=== PATIENT | female | born 1975 | race Caucasian/White ===

== ENCOUNTER 2020-08-17 14:21 | Emergency (ER) | payer OTHER, SELFPAY ==
--- NOTE | ~2020-08-17 | CT_ITS ---
EXAMINATION: CT abdomen pelvis w con DATE: 08/17/2020 15:19 INDICATION: Right lower quadrant abdominal pain TECHNIQUE: Computed tomography (CT) of the abdomen and pelvis was performed with 100 mL Omnipaque-350 intravenous contrast. Automated exposure control and iterative reconstruction technique were employe d. The dose-length product was 723.07 mGy-cm. COMPARISON: None FINDINGS: Lung bases are clear. Heart size is normal. No pericardial or pleural effusion. 7 mm low-attenuation likely hepatic cyst in the right hepatic lobe. Gallbladder, spleen, pancreas, bilateral adrenal gland s and kidneys are normal. Normal appendix. No bowel obstruction. There is diffuse mild wall thickening of the colon due at leas t in part to fatty infiltration which could be related to either body habitus were sequela of chronic inflammation. In place however the fatty infiltration appears somewhat edematous and there appears t o be mild hyperemia to vasa recta along the transverse colon and could not exclude superimposed acute colitis. There is also some fatty infiltration in the terminal ileum which is less typical and can b e seen with chronic inflammation such as Crohn's disease. Bladder and uterus are normal. Approximate 1.5 similar bilateral ovarian cysts/follicles. Trace amoun t of likely physiologic free fluid in the pelvis. No abscess or free intraperitoneal gas. No patholog ically enlarged abdominal or pelvic lymphadenopathy. Minimal scattered degenerative skeletal changes. IMPRESSION: 1. Colonic wall thickening with suggestion of some mild inflammation raising concern for colitis. Fat ty infiltration of the colonic wall and terminal ileum which could be related to recurrent inflammati on, the latter raising some suspicion for possible Crohn's disease. Reviewed, dictated and finalized at [facility]. [employer] IMPRESSION: 1. Colonic wall thickening with suggestion of some mild inflammation raising co ncern for colitis. Fatty infiltration of the colonic wall and terminal ileum wh ich could be related to recurrent inflammation, the latter raising some suspici on for possible Crohn's disease.
[2020-08-17 14:24] VITALS: BP 137/81; PULSE 79; RESP 18; TEMP 35.5; O2SAT 100
[2020-08-17 14:53] LABS: Basophils Percent Auto 0.8 % (0.2-1.2); Eosinophils Absolute Auto 0.2 K/mm3 (0-0.3); Eosinophils Percent Auto 3.1 % (0-4.4); Hematocrit 39.1 % (37.0-47.0); Hemoglobin 13.5 g/dL (12.0-15.0); Immature Granulocyte Absolute 0.01 K/mm3 (0.00-0.031); Immature Granulocyte Percent A 0.2 % (0-0.5); Lymphocytes Absolute Auto 1.68 K/mm3 (0.9-3.2); Lymphocytes Percent Auto 32.1 % (18.3-44.2); Mean Corpuscular HGB Conc 34.5 g/dl (32-36); Mean Corpuscular Hemoglobin 31.8 pg (26-34); Mean Corpuscular Volume 92.2 fl (80-100); Mean Platelet Volume 10.6 fl (7.4-10.4); Monocytes Absolute Auto 0.4 K/mm3 (0.1-0.6); Monocytes Percent Auto 6.7 % (2.6-8.5); Neutrophils Percent Auto 57.1 % (45.5-73.1); Platelet Count Result 286 k/mm3 (150-375); Red Blood Count 4.24 M/mm3 (4.2-5.4); Red Cell Distribution Width 12.8 % (11.5-14.5); White Blood Count 5.2 K/mm3 (4.5-10.0)
[2020-08-17] MEDS: SODIUM CHLORIDE 0.9% IV 1,000 ML 999 ML IV CONT (14:58)
[2020-08-17 15:01] LABS: Alanine Aminotransferase 10 U/L (4-35); Albumin Level 4.3 g/dL (3.5-5.1); Alkaline Phosphatase 63 U/L (38-126); Anion Gap 10 mmol/L (8-16); Aspartate Amino Transferase 23 U/L (14-36); Bilirubin,Total 0.5 mg/dL (0.2-1.3); Blood Urea Nitrogen 8 mg/dL (7-17); Calcium 9.1 mg/dL (8.4-10.2); Carbon Dioxide 25 mmol/L (22-30); Chloride 104 mmol/L (98-107); Estimated CRCL calculation 72 ml/min; Estimated Glomerular Filt Rate > 60; Glucose 95 mg/dL (65-105); Lipase 96 U/L (23-300); Potassium 3.8 mmol/L (3.4-5.0); Sodium 139 mmol/L (137-145)
--- NOTE | 2020-08-17 15:06 | ED.ABDPAIN ---
HPI - Abdominal Pain General Chief Complaint: Abdominal Pain Stated Complaint: ABD pain sent from urgent care Time Seen by Provider: 08/17/20 14:40 Source: patient Mode of arrival: ambulatory Limitations: no limitations History of Present Illness HPI narrative: 45 years old white female presents with right lower quadrant pain, sharp, stabbing, intermittent started last night. Patient denies radiation of pain, fever, chills, nausea, vomit, diarrhea, constipation, vaginal bleeding or discharge, COVID-19 exposure. Patient denies any history of abdominal surgery, does not take medications at home. Patient does not smoke, does not use drugs and drinks occasionally. Related Data Allergies Allergy/AdvReac Type Severity Reaction Status Date / Time No Known Allergies Allergy Verified 08/17/20 14:31 Review of Systems Review of Systems: Narrative: CONSTITUTIONAL: Denies fever, chills, or sweats. EYES: Denies visual changes, redness, or discharge. ENT: Denies rhinorrhea, congestion, sore throat, or otalgia. CARDIOVASCULAR: Denies chest pain, palpitations, or edema. RESPIRATORY: Denies cough or dyspnea. GASTROINTESTINAL: Denies abdominal pain, nausea, vomiting, or diarrhea. GENITOURINARY: Denies dysuria or hematuria. SKIN: Denies rash or itching. MUSCULOSKELETAL: Denies back pain, joint pain, or myalgia. NEUROLOGIC: Denies headache, numbness, or weakness. PSYCHIATRIC: Denies anxiety or depression. [facility] Family History Family History Grandparent Diabetes mellitus Hypertension Family history of elevated blood lipids Family history of cardiovascular disease Cerebrovascular accident Mother Diabetes mellitus Hypertension Family history of elevated blood lipids Family history of cardiovascular disease Social History Social History Smoking status: Never smoker Alcohol intake: never Exam Narrative: Exam Narrative: General appearance: Well-developed, well-nourished Skin: Normal color Head: Normocephalic, nontraumatic Eyes: Clear conjunctiva ENT: Oropharynx normal, ears normal, nose normal Neck: Supple, nontender Chest and respiratory: Airway patent, no respiratory distress, no accessory muscle use Heart: Regular rate/rhythm Abdomen: Soft, mild to moderate tenderness right lower quadrant with deep palpation. No guarding or rebound r, no organomegaly, quiet bowel sounds Vascular: Normal peripheral pulses, normal capillary refill. Musculoskeletal: Normal range of motion, nontender back Neurologic: Alert and oriented ?3, [employer]IGATOR is normal as tested, no gross motor deficit Course Course Emergency Course: Stable Vital Signs Vital signs: Vital Signs Temperature 35.5 C L 08/17/20 14:24 Pulse Rate 79 08/17/20 14:24 Respiratory Rate 18 08/17/20 14:24 Blood Pressure 137/81 08/17/20 14:24 Pulse Oximetry 100 08/17/20 14:24 Temperature 35.5 C L 08/17/20 14:24 Pulse Rate 79 08/17/20 14:24 Respiratory Rate 18 08/17/20 14:24 Blood Pressure 137/81 08/17/20 14:24 Pulse Oximetry 100 08/17/20 14:24 MDM - Abdominal Pain MDM Narrative Medical decision making narrative: Right lower quadrant pain. Labs, CT abdomen and pelvis with IV contrast, IV fluid started. Differential Diagnosis Differential diagnosis: Likely acute appendicitis, calculus of kidney, constipation and diverticulitis Lab Data Result diagrams: 08/17/20 14:40 08/17/20 14:40 Labs: Lab Results 08/17/20 08/17/20 08/17/20 Range/Units 14:40 14:40 14:42 WBC 5.2 (4.5-10.0) K/mm3 RBC 4.24 (4.2-5.4) M/mm3 Hgb 13.5
[2020-08-17 15:15] LABS: Add Urine Microscopic? YES; Appearance Urine Clear (Clear); Bacteria Urine Trace /hpf; Bilirubin Urine Negative (Negative); Blood Urine Negative (Negative); Color Urine Yellow (Yellow); Glucose Urine UA Negative (Negative); Ketones Urine Negative (Negative); Leukocyte Esterase Ur Negative LEU/UL (Negative); Mucus Urine Rare /lpf; Nitrate Urine Negative (Negative); Protein Urine Negative (Negative); Specific Grav Ur 1.011 (1.001-1.035); Squamous Epithelial Cell Urine Few /hpf (Few); Urobilinogen Urine Negative mg/dL (<2.0); WBC Urine 0-3 /hpf
[2020-08-17 16:15] VITALS: BP 137/88; PULSE 62; RESP 20; O2SAT 100
== END 2020-08-17 16:16 | disposition home or self-care (01) ==
PROVIDERS: Emergency Medicine; Emergency Provider Emergency Medicine; PCP Family Medicine
DX: K52.9 Noninfective gastroenteritis and colitis, unspecified (principal)
CPT/HCPCS: 36415; 74177; 80053; 81001; 81025; 83690; 85025; 96360; 99284; J7030; Q9967